=== PATIENT | female | born 1990 | race Caucasian/White ===

== ENCOUNTER 2016-12-11 14:01 | Outpatient (CLI) | payer OTHER ==
[~2016-12-11] VITALS: Ht 152.4 cm; Wt 95.1 kg
[2016-12-11 15:01] VITALS: BP 102/61; PULSE 97; RESP 18
[2016-12-11] MEDS ORDERED: TERBUTALINE 1 MG/ML INJ SC ONE (16:30)
[2016-12-11] MEDS ORDERED: LACTATED RINGER'S 1,000 ML IV ONE (16:30)
[2016-12-11] MEDS ORDERED: LACTATED RINGER'S 1,000 ML IV SCH (18:30)
--- NOTE | 2016-12-12 02:40 | TRIAGE ---
OB Triage Datetime Report Generated by CPN: 12/12/2016 02:39 Datetime: 12/11/2016 20:41 Stage of : OB Triage Datetime: 12/11/2016 20:39 Stage of : OB Triage Labor Evaluation Frequency: x2 Monitor Mode: External Duration (sec)2399: 40-60 Quality: Mild Resting Tone [place]: Relaxed Heart Rate FHR Baseline Rate: 130 Monitor Mode: External US Variability: Moderate 6-25 bpm Accelerations: 15X15 Decelerations: None Category: Category I Pain Presence: None/Denies Pain Type: N/A Datetime: 12/11/2016 19:15 Stage of : OB Triage Datetime: 12/11/2016 19:08 Stage of : OB Triage Datetime: 12/11/2016 18:30 Stage of : OB Triage Labor Evaluation Frequency: x5 Monitor Mode: External Duration (sec)2399: 70 Quality: Mild Pattern: Normal: <= 5 Contractions in 10 Minutes Resting Tone [place]: Relaxed Heart Rate FHR Baseline Rate: 130 Monitor Mode: External US FHR Baseline Changes: No Baseline Change Variability: Moderate 6-25 bpm Accelerations: 15X15 Decelerations: None Pain Assessment Pain Scale: 5 Pain Presence: Intermittent Pain Type: Cramping Pain Location: Abdomen; Back Pain Relief Measures: Comfort Measures Datetime: 12/11/2016 17:40 Temperature Route: Oral Datetime: 12/11/2016 17:30 Stage of : OB Triage Labor Evaluation Frequency: 2-5 Monitor Mode: External Duration (sec)2399: 70 Heart Rate FHR Baseline Rate: 130 Monitor Mode: External US FHR Baseline Changes: No Baseline Change Variability: Moderate 6-25 bpm Accelerations: 15X15 Decelerations: None Pain Assessment Pain Scale: 7 Pain Presence: Intermittent Pain Type: Cramping Pain Location: Abdomen; Back Pain Goal: 7 Pain Relief Measures: Comfort Measures Datetime: 12/11/2016 16:30 Stage of : OB Triage Labor Evaluation Frequency: 2-5 Monitor Mode: External Duration (sec)2399: 70 Heart Rate FHR Baseline Rate: 130 Monitor Mode: External US FHR Baseline Changes: No Baseline Change Variability: Moderate 6-25 bpm Accelerations: 15X15 Decelerations: None Pain Assessment Pain Scale: 7 Pain Presence: Intermittent Pain Type: Cramping Pain Location: Abdomen; Back Pain Goal: 7 Pain Relief Measures: Comfort Measures Datetime: 12/11/2016 16:13 Vaginal Exam Dilatation (cms): 0.0 Station: -3 Exam By: RN Vaginal Bleeding: None Cervix, Consistency: Soft Cervix, Position: Midposition Datetime: 12/11/2016 15:30 Labor Evaluation Frequency: 2-5 Monitor Mode: External Duration (sec)2399: 70 Heart Rate FHR Baseline Rate: 130 Monitor Mode: External US FHR Baseline Changes: No Baseline Change Variability: Moderate 6-25 bpm Accelerations: 15X15 Decelerations: None Pain Assessment Pain Scale: 7 Pain Presence: Intermittent Pain Type: Cramping Pain Location: Abdomen; Back Pain Goal: 7 Pain Relief Measures: Comfort Measures Datetime: 12/11/2016 14:43 Time of Arrival: 12/11/2016 13:57 EGA: 36.3 Arrived By: Ambulatory Arrived From: Home Chief Complaint: LOWER ABDOMEN AND LOWER BACK PAINS SINCE 899 TODAY Movement: Present Contractions: Irregular Time Contractions Began: 12/11/2016 09:00 Rupture of Membranes: Denies Vaginal Bleeding: None Vaginal Discharge: Denies Recent Sexual Intercouse: Denies Abdominal Trauma: Not Applicable Patient Complaints: Contractions Initial Plan: FM, Datetime: 12/11/2016 14:30 Stage of : OB Triage Maternal Assessment Level of Consciousness: Fully Conscious DTR's/Clonus: DTRs 2+ Headache: Denies Breath Sounds, Left: Clear and Equal Breath Sounds, Right: Clear and Equal Nausea/Vomiting: Denies RUQ Epigastric Pain: Denies Monitor Mode: External Monitor Mode: External US Pain Assessment Pain Scale: 7 Pain Presence: Intermittent Pain Type: Cramping Pain Location: Abdomen; Back Pain Goal: 7 Pain Relief Measures: Comfort Measures
--- NOTE | 2016-12-12 03:48 | PN ---
Triage Information Date/Time Reason for visit: Uterine contractions Weeks of Gestation 36 3/7 /Para Hypertention: none Additional information 26 Year-old with SIUP at 36 3/7 weeks with two previous C/S c/o UCS since 14:00. She has been receiving her care with Dr. Boyce. She states good movement. She denies nausea, vomiting, shortness of breath, chest pain, and abdominal pain between contractions, headache, visual changes, vaginal bleeding or LOF. Objective Vital Signs Date Time Temp Pulse Resp B/P Pulse Ox O2 Delivery O2 Flow Rate FiO2 12/11/16 15:01 98.2 97 18 102/61 99 Room Air Intake and Output 12/11/16 12/11/16 12/12/16 15:00 23:00 07:00 Intake Total 1125 ml Balance 1125 ml Exam General: Patient appears well, alert and oriented, NAD, appropriate mood and affect ABD: gravid, soft, non-tender. Back: No CVA tenderness (B/L) LE: No clubbing, cyanosis, edema, thigh or calf tenderness bilaterally FHT: 135 bpm , moderate variability with acceleration, no deceleration-category I Contractions: Q 10 min SVE: closed/ceph/intact membrane Assessment/Plan 26 Year-old with SIUP at 36 3/7 weeks with PTC. She received IVF and terbutaline x1. There was no further ucs. FHR: No sign of metabolic acidosis- Category I. Symptoms and sign of labor, preeclampsia, kick count discussed with patient, she voiced understanding. All of her questions answered. Patient was discharged home in stable condition with the appropriate discharge instructions provided. I would like patient to have close follow-up with her primary physician or outpatient clinic in 1-2 days or return to the ER for worsening symptoms or any other urgent concerns. WELLINGTON CORCORAN Dec 12, 2016 03:48
== END 2016-12-11 20:51 | disposition home or self-care (01) ==
LOC: OBT 14:01 → L-D 14:03 → OBT 20:51
PROVIDERS: ATTEND Obstetrics & Gynecology
DX: O26.893 Other specified pregnancy related conditions, third trimester (principal); Z3A.36 36 weeks gestation of pregnancy; R10.9 Unspecified abdominal pain
CPT/HCPCS: 36415; 96360; 96361; 96372; J3105; J7120; Z7500; G0463

== ENCOUNTER 2016-12-20 12:35 | Outpatient (CLI) | payer OTHER ==
[~2016-12-20] VITALS: Ht 152.4 cm; Wt 97.3 kg
[2016-12-20] MEDS ORDERED: FER325 PO (13:39)
[2016-12-20] MEDS ORDERED: PRENAT PO (13:39)
[2016-12-20 13:40] VITALS: BP 115/64; PULSE 100; RESP 18; Ht 152.4 cm; Wt 97.3 kg
--- NOTE | 2016-12-20 16:21 | RADRPT ---
PROCEDURE: US OB biophysical profile. CLINICAL INDICATION: decreased movements, contractions TECHNIQUE: Multiple sonographic images of the pelvis were obtained. The images were reviewed on a PACS workstation. COMPARISON: No prior studies are available for comparison. FINDINGS: There is a single viable intrauterine gestation. Cardiac activity is present with 154 beats per min [place]. There is a vertex presentation. The placenta is right lateral. There is no evidence of placental abruption. There is a normal amount of amniotic fluid with an WU = 11.4 cm. Biophysical profile: movement 2/2 tone 2/2. breathing 2/2 WU 2/2 Total 11/21 RPTAT: AA . IMPRESSION: Normal biophysical profile. . .Anthony Sung MD, Date Time Electronically viewed and signed by .Anthony Sung MD, MD on 12/20/2016 16:20 .S/
--- NOTE | 2016-12-20 16:48 | TRIAGE ---
OB Triage Datetime Report Generated by CPN: 12/20/2016 16:47 Datetime: 12/20/2016 16:30 Vaginal Exam Dilatation (cms): 0.0 Datetime: 12/20/2016 16:00 Stage of : OB Triage Maternal Assessment Level of Consciousness: Fully Conscious Labor Evaluation Frequency: 1UC/HR Monitor Mode: External Duration (sec)2399: 50 Quality: Mild Resting Tone [place]: Relaxed Heart Rate FHR Baseline Rate: 145 Monitor Mode: External US Variability: Moderate 6-25 bpm Accelerations: 15X15 Decelerations: None Pain Assessment Pain Scale: 6 Pain Presence: Constant Pain Type: Cramping Pain Location: Abdomen Pain Goal: 3 Membrane Status: Intact Vaginal Bleeding: None Datetime: 12/20/2016 15:00 Stage of : OB Triage Maternal Assessment Level of Consciousness: Fully Conscious Labor Evaluation Frequency: 3UC/HR Monitor Mode: External Duration (sec)2399: 70-80 Quality: Mild Resting Tone [place]: Relaxed Heart Rate FHR Baseline Rate: 150 Monitor Mode: External US Variability: Moderate 6-25 bpm Accelerations: 15X15 Decelerations: None Pain Assessment Pain Scale: 6 Pain Presence: Constant Pain Type: Cramping Pain Location: Abdomen Pain Goal: 3 Membrane Status: Intact Vaginal Bleeding: None Datetime: 12/20/2016 14:03 Monitor Mode: External Monitor Mode: External US Datetime: 12/20/2016 14:02 Vaginal Exam Dilatation (cms): 0.0 Datetime: 12/20/2016 14:00 Stage of : OB Triage Maternal Assessment Level of Consciousness: Fully Conscious Labor Evaluation Frequency: 0 Monitor Mode: External Resting Tone [place]: Relaxed Heart Rate FHR Baseline Rate: 150 Monitor Mode: External US Variability: Moderate 6-25 bpm Accelerations: 15X15 Decelerations: None Category: Category I Pain Assessment Pain Scale: 6 Pain Presence: Constant Pain Type: Cramping Pain Location: Abdomen Pain Goal: 3 Membrane Status: Intact Vaginal Bleeding: None Datetime: 12/20/2016 13:37 Assessment Type: Triage Maternal Assessment Level of Consciousness: Fully Conscious DTR's/Clonus: DTRs 2+; No Clonus Headache: Denies Blurred Vision: No Respiratory Effort: Unlabored; Regular Rhythm; Equal Expansion Breath Sounds, Left: Clear and Equal Breath Sounds, Right: Clear and Equal Nausea/Vomiting: Denies RUQ Epigastric Pain: Denies Lower Extremities Edema: None Degree: None Upper Extremities Edema: None Degree: None Facial Edema: None Fall Risk Assessment History of Falling: (0) No Secondary Diagnosis: (0) No Ambulatory Aid: (0) Bedrest/Nurse Assist IV Therapy: (0) No Gait: (0) Normal/Bedrest/Immobile Mental Status: (0) Oriented to Own Ability Fall Score: 0 Fall Risk Score Definition: No Risk: No action required Datetime: 12/20/2016 13:33 Time of Arrival: 12/20/2016 12:23 EGA: 37.5 Arrived By: Ambulatory Arrived From: Home Chief Complaint: PT HERE C/O UC'S SINCE 0300 Movement: Present Contractions: Irregular Rupture of Membranes: Denies Vaginal Bleeding: None Vaginal Discharge: Denies Recent Sexual Intercouse: Denies Abdominal Trauma: Not Applicable Patient Complaints: Contractions; Cramping; Back Pain Time Provider Notified: 12/20/2016 15:00 Provider Notified: ABUSLEME Initial Plan: EFM/BPP Datetime: 12/20/2016 13:14 Monitor Mode: External Monitor Mode: External US Datetime: 12/11/2016 14:43 EGA: 36.3
--- NOTE | 2016-12-20 16:51 | PN ---
Triage Information Date/Time Reason for visit: Uterine contractions Weeks of Gestation 37+ /Para 4/2 Diabetes: none Hypertention: none Objective Vital Signs Date Time Temp Pulse Resp B/P Pulse Ox O2 Delivery O2 Flow Rate FiO2 12/20/16 13:40 98.1 100 18 115/64 96 Room Air Contractions: None (RICHIE IRRITABILITY) Disposition: Discharge Assessment/Plan PER ,THE PATIENT IS DISCHARGED AND WILL BE FOLLOWD UP BY HER CLOSELY PAIENT EXTENSIVELY WERE ADVISED,IF ANY INCREASED CTX ANY LOF ANY VB AND DECREASED MOVEMENTS SHE WILL NEED TO GO TO HOSPITAL IMMEDIATELY SUSANA ALLEN M.D. Dec 20, 2016 16:51
== END 2016-12-20 16:50 | disposition home or self-care (01) ==
LOC: OBT 12:35 → L-D 12:36 → OBT 16:50
PROVIDERS: ATTEND Obstetrics & Gynecology
DX: O62.9 Abnormality of forces of labor, unspecified (principal); Z3A.37 37 weeks gestation of pregnancy
CPT/HCPCS: 76818; Z7500; G0463

== ENCOUNTER 2016-12-29 10:12 | Inpatient (IN) | payer OTHER ==
--- NOTE | 2016-12-25 11:41 | PREOPHP ---
DATE OF ADMISSION: 01/07/2017 The patient is coming on Sunday, the for a section. HISTORY OF PRESENT ILLNESS: This is a 25-year old female, 4, para 2, with 1 spontaneous . The patient with last period of 03/31/2016 and an EDC of 01/05/2017. This patient had care in my office without complications and she has been admitted for a repeat section. She was asked for possibilities of tubal ligation, and she will be using IUD. This patient has had no complications during her . Her normal weight before was 176. She had come in late in with a weight of 210 and she had been diagnosed with a large fetus as well. PAST MEDICAL HISTORY: She had 2 C sections. ALLERGIES: SHE IS NOT ALLERGIC TO ANY MEDICATIONS. SOCIAL HISTORY: She does not drink or smoke. No history of drugs. FAMILY HISTORY: Diabetes in her aunt and otherwise she has a healthy history. PHYSICAL EXAMINATION: She is 5 feet tall and she weighs 210. The pulse is 80, respirations 16, blood pressure is 110/80. HEENT: Head and neck is normal. CHEST: Clear. HEART: Normal sinus rhythm. LUNGS: Clear breath soft nontender no masses. ABDOMEN: Soft. Uterus at term, with normal presentation, cephalic and with normal heart tones. Pelvic examination with no changes. Cervix is closed, long and posterior. EXTREMITIES: Normal with some edema, normal reflexes, normal pulses. ASSESSMENT AND PLAN: With a diagnosis of term , previous sections x2, she is being admitted for a repeat section. She has been advised for the possible risks and possible complications of the procedure with her alternatives and options. Written information was provided. She had no more questions, and agreed to go ahead with the procedure with full understanding and no more questions. Dictated By: Velia Rodriguez MD /manjeet/raj /Document#: [id number]
[~2016-12-29] VITALS: Ht 152.4 cm; Wt 98.6 kg
[~2016-12-29 10:12] MED LIST: FER325 PO; PRENAT PO
[2016-12-29] MEDS ORDERED: LACTATED RINGER'S 1,000 ML IV SCH (10:22)
[2016-12-29] MEDS ORDERED: OXYTOCIN 30 UNITS/LR 500 ML IV SCH (10:30)
[2016-12-29] MEDS ORDERED: METHYLERGONOVINE 0.2 MG INJ IM PRN ×2 (10:30→15:00)
[2016-12-29] MEDS ORDERED: MISOPROSTOL 200 MCG TAB PR PRN ×2 (10:30→15:00)
[2016-12-29] MEDS ORDERED: CARBOPROST 250 MCG INJ IM PRN ×2 (10:30→15:00)
[2016-12-29] MEDS ORDERED: OXYTOCIN 30 UNITS/LR 500 ML IV PRN ×2 (10:30→15:00)
[2016-12-29] MEDS ORDERED: CEFAZOLIN 2 GM/50 ML (PMX) 50 ML IV SCH (10:30)
[2016-12-29 10:52] VITALS: Ht 152.4 cm; Wt 98.6 kg
[2016-12-29 11:42] LABS: BASOPHILS % 0.1 % (0.0-2.0); EOSINOPHILS % 0.5 % (0.0-7.0); HEMATOCRIT 32.6 % (37.0-47.0); HEMOGLOBIN 10.3 g/dl (12.0-16.0); LYMPHOCYTES # 1.6 10^3/ul (0.8-2.9); LYMPHOCYTES % 20.1 % (15.0-51.0); MEAN CORPUSCULAR HEMOGLOBIN 25.8 pg (29.0-33.0); MEAN CORPUSCULAR HGB CONC 31.6 g/dl (32.0-37.0); MEAN CORPUSCULAR VOLUME 81.5 fl (82.0-101.0); MEAN PLATELET VOLUME 10.4 fl (7.4-10.4); MONOCYTE # 0.5 10^3/ul (0.3-0.9); MONOCYTES % 6.2 % (0.0-11.0); NEUTROPHIL # 5.8 10^3/ul (1.6-7.5); NEUTROPHILS % 72.7 % (39.0-77.0); PLATELET COUNT 306 10^3/UL (140-415); RED CELL DISTRIBUTION WIDTH 13.7 % (11.5-14.5); WHITE BLOOD COUNT 7.9 10^3/ul (4.8-10.8)
[2016-12-29 12:06] LABS: INR 0.93; PROTIME 12.5 Sec (12.2-14.2)
[2016-12-29 12:07] LABS: PARTIAL THROMBOPLASTIN TIME 29.1 Sec (25.0-35.0)
[2016-12-29] MEDS ORDERED: OXYTOCIN 30 UNITS/LR 500 ML BAG IV ONE (13:00)
[2016-12-29] MEDS ORDERED: CEFAZOLIN 1 GM INJ ONE (13:00)
[2016-12-29] MEDS ORDERED: morphine SULFATE/PF (10 MG/10 ML) INJ ONE (13:11)
[2016-12-29] MEDS ORDERED: OXYTOCIN 10 UNIT INJ ONE ×2 (13:11)
[2016-12-29] MEDS ORDERED: PHENYLephrine (100 MCG/ML) 5ML SYG ONE (13:11)
[2016-12-29] MEDS ORDERED: ONDANSETRON 4 MG INJ ONE (13:11)
[2016-12-29] MEDS ORDERED: FENTAnyl 50 MCG/ML VIAL ONE (14:01)
[2016-12-29] MEDS: LACTATED RINGER'S 1,000 ML IV SCH ×2 (14:35→22:22)
--- NOTE | 2016-12-29 14:43 | OPR ---
Date/Time of Note Date/Time of Note DATE: 12/29/16 TIME: 14:41 Operative Report Free Text/Dictation REPEAT LOW SEGMENT TRANSVERSE C/S Procedure Date: Dec 29, 2016 Preoperative Diagnosis PREVIOUS C/S ( 2 ) TERM Postoperative Diagnosis SAME Surgeon see signature line Carpenter Mine: CHANG REYES MD medical assistant supervisor: RONY PHILIP MD Anesthesia Type: spinal Anesthesiologist: MIKAYLA BERUMEN MD Estimated Blood Loss: other Transfusion Required: no Specimens PLACENTA Complications: no Pt Condition Post Procedure: stable Disposition: PACU CHANG REYES MD Dec 29, 2016 14:43
[2016-12-29] MEDS ORDERED: ONDANSETRON 4 MG INJ IV PRN (15:00)
[2016-12-29] MEDS: CEFAZOLIN 2 GM/50 ML (PMX) 50 ML IV SCH ×2 (15:00→22:27)
[2016-12-29] MEDS ORDERED: KETOROLAC 30 MG INJ IV PRN (15:00)
[2016-12-29] MEDS ORDERED: LANOLIN 7 GM TUBE TOP PRN (15:00)
[2016-12-29] MEDS ORDERED: NA PHOSPHATE/BIPHOS 133 ML ENEMA PR PRN (15:00)
[2016-12-29] MEDS ORDERED: NALOXONE (0.4 MG/ML) INJ IV PRN (15:00)
[2016-12-29] MEDS ORDERED: morphine 2 MG INJ IV PRN (15:00)
[2016-12-29] MEDS ORDERED: METHYLERGONOVINE 0.2 MG TAB PO PRN (15:00)
[2016-12-29] MEDS ORDERED: DIPHENHYDRAMINE 50 MG INJ IV PRN (15:00)
[2016-12-29] MEDS ORDERED: HYDROCODONE/APAP (5/325) TAB PO PRN (15:00)
[2016-12-29] MEDS: OXYTOCIN 30 UNITS/LR 500 ML IV SCH ×2 (15:04→18:16)
[2016-12-29 16:45] VITALS: BP 132/77; PULSE 72; RESP 18
[2016-12-29 17:00] VITALS: BP 132/80; PULSE 69; RESP 19
[2016-12-29 17:30] VITALS: BP 136/74; PULSE 62; RESP 19
[2016-12-29 18:30] VITALS: BP 133/69; PULSE 73; RESP 19
--- NOTE | 2016-12-29 19:07 | OPR ---
DATE OF OPERATION: 12/29/2016 OPERATIVE PROCEDURE: Repeat low segment transverse section. PREOPERATIVE DIAGNOSIS: Term , previous section x2. POSTOPERATIVE DIAGNOSIS: Term , previous section x2. SURGEON: Velia Rodriguez MD RN WELLNESS: Dr. Wright ANESTHESIA: Michael Johnson MD COMPLICATIONS: None. OPERATIVE FINDINGS AT SURGERY: The patient was given spinal anesthesia, placed in the supine position. A Klein catheter was placed in the bladder and the abdomen was prepped and draped, and a transverse incision was made over the previous old scar 2 cm up the pubic bone of about 10 cm in length. The abdominal cavity was reached and the Giovanny retractor was placed inside. Visualization of the organs revealed that there was a small fibroid uterus. This segment area of the uterus was very thin and transparent, almost looking through. The area of the segment was almost out of the thinness and looking through you could see the amniotic fluid. The bladder flap was made. The incision was made higher on the uterus and the incision was increased laterally on either side for about 3 inches. The baby's head was delivered followed by the body. The cord was clamped and cut. The baby was handed over to the bilingual trainer team. The cord blood was obtained. The placenta was removed. The uterus was cleaned out. The cervix was opened with ring forceps and the uterus was closed with two layers using #1 Monocryl continuous suture imbedding the first line of sutures. The hemostasis was good and interrupted sutures were placed for reinforcement with 0-MH chromic, and also there was an adhesion of the uterus to the lateral wall of the pelvis that was also excised and released that was sutured also 0-chromic sutures. The tubes and ovaries were normal. The right ovary was larger than the left. The area was cleaned out and a piece of Interceed was placed on the incision for prevention of adhesions. The patient had refused tubal ligation in spite of the third C- section and in spite of medical advice. The abdominal area was closed by closing the peritoneum with a 2-0 Vicryl. The fascia was closed with a PDS loop suture. The subcutaneous tissue was closed with a 2-0 Vicryl suture, 3-0 Monocryl subcuticular to the skin, and Dermabond and Steri-Strips. Blood loss was approximately 700 cc. The urine was clear at the end of the procedure. The patient tolerated the procedure well and left the OR awake and stable. Sponge counts and instrument counts were correct. Intravenous antibiotics were given for prophylaxis. Dictated By: Velia Rodriguez MD /manjeet/dakota /Document#: [id number]
[2016-12-29 20:00] VITALS: BP 134/68; PULSE 67; RESP 18
[2016-12-29] MEDS: SENNA/DOCUSATE NA (8.6MG/50MG) TAB PO SCH (21:00)
[2016-12-29] MEDS: IBUPROFEN 800 MG TAB PO SCH (22:00)
[2016-12-30 04:00] VITALS: BP_SYST 114; BP_SYST 90; BP_DIAS 55; BP_DIAS 62; PULSE 69; PULSE 89; RESP 18
[2016-12-30] MEDS: IBUPROFEN 800 MG TAB PO SCH (06:00)
[2016-12-30] MEDS: CEFAZOLIN 2 GM/50 ML (PMX) 50 ML IV SCH (06:07)
[2016-12-30] MEDS: LACTATED RINGER'S 1,000 ML IV SCH (06:08)
[2016-12-30 08:30] VITALS: BP 110/67; PULSE 95; RESP 18
--- NOTE | 2016-12-30 09:20 | PN ---
Date/Time of Note Date/Time of Note DATE: 12/30/16 TIME: 09:18 Assessment/Plan Lines/Catheters IV Catheter Type (from Nrsg): Peripheral IV Subjective 24 Hr Interval Summary Day 1 post Patient is afebrile and feeling good Stable with normal near-normal laboratory testing Pain is controlled, incision is dry Encouraged ambulation Constitutional: no complaints Feeding: advancing diet Detailed Summary Eyes: no complaints ENT: no complaints Respiratory: no complaints Cardiovascular: no complaints Gastrointestinal: no complaints Genitourinary: no complaints Musculoskeletal: no complaints Skin: no complaints Neurologic: no complaints Endocrine: no complaints Lymphatic: no complaints Psychological: nl mood/affect, no complaints Immunologic: no complaints Exam/Review of Systems Vital Signs Vitals Vital Signs Date Time Temp Pulse Resp B/P Pulse Ox O2 Delivery O2 Flow Rate FiO2 12/30/16 04:00 98.1 89 18 114/62 Room Air 12/30/16 02:40 95 21 Intake and Output 12/29/16 12/29/16 12/30/16 15:00 23:00 07:00 Intake Total 500 ml Output Total 1000 ml 300 ml Balance -500 ml -300 ml Exam Constitutional: alert, oriented, well developed Psych: nl mood/affect, no complaints Head: atraumatic, normocephalic Eyes: EOMI, nl conjunctiva, nl lids, nl sclera ENMT: mucosa pink and moist, nl external ears & nose, nl lips & teeth, nl nasal mucosa & septum Neck: non-tender, supple Respiratory: clear to auscultation, normal air movement Cardiovascular: nl pulses, regular rate and rhythm Gastrointestinal: nl liver, spleen, non-tender, soft Musculoskeletal: nl extremities to inspection, nl gait and stance Extremities: normal pulses Neurological: SUPERVISOR MAIL CARRIERS II-XII intact, nl mental status, nl speech, nl strength Skin: nl turgor, rash or lesions Lymph: nl lymph nodes Results Result Diagram: 12/29/16 1030 CHANG REYES MD Dec 30, 2016 09:20
[2016-12-30 09:26] LABS: BASOPHILS % 0.2 % (0.0-2.0); EOSINOPHILS # 0.1 10^3/ul (0.0-0.5); EOSINOPHILS % 0.7 % (0.0-7.0); HEMATOCRIT 29.1 % (37.0-47.0); HEMOGLOBIN 9.2 g/dl (12.0-16.0); LYMPHOCYTES # 1.3 10^3/ul (0.8-2.9); LYMPHOCYTES % 12.4 % (15.0-51.0); MEAN CORPUSCULAR HEMOGLOBIN 25.6 pg (29.0-33.0); MEAN CORPUSCULAR HGB CONC 31.6 g/dl (32.0-37.0); MEAN CORPUSCULAR VOLUME 80.8 fl (82.0-101.0); MEAN PLATELET VOLUME 10.3 fl (7.4-10.4); MONOCYTE # 0.7 10^3/ul (0.3-0.9); MONOCYTES % 6.8 % (0.0-11.0); NEUTROPHIL # 8.5 10^3/ul (1.6-7.5); NEUTROPHILS % 79.3 % (39.0-77.0); PLATELET COUNT 284 10^3/UL (140-415); RED CELL DISTRIBUTION WIDTH 13.8 % (11.5-14.5); WHITE BLOOD COUNT 10.8 10^3/ul (4.8-10.8)
[2016-12-30] MEDS: SENNA/DOCUSATE NA (8.6MG/50MG) TAB PO SCH ×2 (09:51→22:13)
[2016-12-30] MEDS: KETOROLAC 30 MG INJ IV SCH ×3 (09:52→22:09)
[2016-12-30 12:00] VITALS: BP 105/60; PULSE 85; RESP 20
[2016-12-30 16:00] VITALS: BP 103/51; PULSE 80; RESP 16
[2016-12-30 20:00] VITALS: BP 114/63; PULSE 94; RESP 17
[2016-12-31 04:40] VITALS: BP 124/73; PULSE 83; RESP 17
[2016-12-31] MEDS: KETOROLAC 30 MG INJ IV SCH ×4 (04:41→21:30)
[2016-12-31 07:50] VITALS: BP 125/70; PULSE 78; RESP 20
[2016-12-31] MEDS: SENNA/DOCUSATE NA (8.6MG/50MG) TAB PO SCH ×2 (09:02→21:06)
--- NOTE | 2016-12-31 13:45 | PN ---
Date/Time of Note Date/Time of Note DATE: 12/31/16 TIME: 13:44 Assessment/Plan Lines/Catheters IV Catheter Type (from Nrsg): Peripheral IV Subjective 24 Hr Interval Summary day 2 after repeat c/s afebrile , feels good. uterus contracted , tolerating diet now and passing gases incision dry Constitutional: BM, ambulates, flatus, improved, no complaints, urine output Feeding: advancing diet Pain Control: moderate Detailed Summary Eyes: no complaints ENT: no complaints Respiratory: no complaints Cardiovascular: no complaints Gastrointestinal: no complaints Genitourinary: no complaints Musculoskeletal: no complaints Skin: no complaints Neurologic: no complaints Endocrine: no complaints Lymphatic: no complaints Psychological: nl mood/affect, no complaints Immunologic: no complaints Exam/Review of Systems Vital Signs Vitals Vital Signs Date Time Temp Pulse Resp B/P Pulse Ox O2 Delivery O2 Flow Rate FiO2 12/31/16 07:50 98.1 78 20 125/70 Room Air 12/30/16 11:10 95 21 Intake and Output 12/30/16 12/30/16 12/31/16 14:59 22:59 06:59 Output Total 300 ml 300 ml Balance -300 ml -300 ml Exam Constitutional: alert, oriented, well developed Psych: nl mood/affect, no complaints Head: atraumatic, normocephalic Eyes: EOMI, nl conjunctiva, nl lids, nl sclera ENMT: mucosa pink and moist, nl external ears & nose, nl lips & teeth, nl nasal mucosa & septum Neck: non-tender, supple Respiratory: clear to auscultation, normal air movement Cardiovascular: nl pulses, regular rate and rhythm Gastrointestinal: nl liver, spleen, non-tender, soft Musculoskeletal: nl extremities to inspection, nl gait and stance Extremities: normal pulses Neurological: UTILIZATION MANAGEMENT RN II-XII intact, nl mental status, nl speech, nl strength Skin: nl turgor, rash or lesions Lymph: nl lymph nodes Results Result Diagram: 12/30/16 0852 CHANG REYES MD Dec 31, 2016 13:45
[2016-12-31] MEDS: SILVER SULFADIAZINE 1% 25 GM CR TOP SCH (16:40)
[2016-12-31 18:26] VITALS: BP 132/78; PULSE 69; RESP 20
[2016-12-31 20:00] VITALS: BP 122/74; PULSE 72; RESP 19
[2017-01-01] MEDS: HYDROCODONE/APAP (5/325) TAB PO PRN ×2 (00:45→11:45)
[2017-01-01] MEDS: KETOROLAC 30 MG INJ IV SCH ×2 (03:30→09:30)
[2017-01-01 04:00] VITALS: BP 123/75; PULSE 72; RESP 19
[2017-01-01] MEDS: SILVER SULFADIAZINE 1% 25 GM CR TOP SCH ×2 (04:54→15:36)
[2017-01-01 08:15] VITALS: BP 138/79; PULSE 77; RESP 19
[2017-01-01] MEDS ORDERED: MEASLES,MUMPS,RUBELLA VACCINE INJ SC* ONE (09:00)
[2017-01-01] MEDS ORDERED: DIPHTH/TET/ACEL PERTUSS (ADULT) 0.5 ML VIAL IM* ONE (09:00)
[2017-01-01] MEDS: SENNA/DOCUSATE NA (8.6MG/50MG) TAB PO SCH (09:15)
--- NOTE | 2017-01-01 14:03 | PD.PPDC ---
CONTACT OFFICER Discharge Instruction Condition Patient Condition: Good Diet Diet: Resume Regular Diet Activity/Restrictions Activity: Normal Activity May Shower Restrictions: No Exercising No Lifting No Driving No Sexual Activity Nothing in the Vagina No [place] No Tampons, douche Wound/Drain Care Instructions Wound/Drain Care Instructions: Remove Steri Strips in 1 week Follow-up Follow-up with Physician: 2, Week/Weeks Return to clinic for BOAT OUTFITTING SUPERVISOR Instructions: Fever greater than 101 Chills Worsening abdominal pain Excessive Vaginal Bleeding More than 2 pads per hour Unable to tolerate diet OB Instructions: Breast Tenderness Depression Blurried Vision Headache Surgical Instructions: Incisional Drainage Incisional Redness CHANG REYES MD Jan 01, 2017 14:03
--- NOTE | 2017-01-01 14:16 | DS ---
Date/Time of Note Date/Time of Note DATE: 01/01/17 TIME: 14:08 Discharge Summary Admission/Discharge Info Admit Date/Time Dec 29, 2016 at 10:12 Discharge Date/Time 01/01/2017 Discharge Diagnosis term previous c/s repeat c/s Patient Condition: Good Procedures Repeat c/s Hx of Present Illness term with previous c/s and an uneventful had GDM diet controlled was admitted for repeat c/s patient had a blister that opened due to incisional tape Hospital Course patient had no problems voiding after c/s with bm after second day. her labs were near normal pain was controlled with po meds. incision was clean and healing well Home Meds Reported Medications Ferrous Sulfate* (Ferrous Sulfate*) 325 Mg Tabec, 325 MG PO DAILY, TAB 12/20/16 Multivit/Min/Fol Ac/Iron/Pren* ( S*) 1 Tab Tab, 1 TAB PO DAILY, TAB 12/20/16 Follow-up Plan 1 week in my office or earlier if any problem, Primary Care Provider Laura Sanchez Time spent on discharge: < 30 minutes CHANG REYES MD Jan 01, 2017 14:16
== END 2017-01-01 15:50 | disposition home or self-care (01) | DRG 766 ==
LOC: L-D 10:12 → PP1 16:42
PROVIDERS: ADMIT Obstetrics & Gynecology; ATTEND Obstetrics & Gynecology
PROC: 10D00Z1 Extraction of Products of Conception, Low, Open Approach (ICD-10-PCS; principal; 2016-12-29 12:30)
DX: O34.211 Maternal care for low transverse scar from previous cesarean delivery (principal); Z37.0 Single live birth; Z3A.00 Weeks of gestation of pregnancy not specified
CPT/HCPCS: 85025; 85610; 85730; 86592; 86850; 86900; 86901; 87340; 90715; 94760; 99464; J0690; J1200; J1885; J2274; J2370; J2405; J2590; J3010; J7120

== ENCOUNTER 2018-07-18 22:34 | Outpatient (CLI) | payer OTHER ==
[~2018-07-18] VITALS: Ht 152.4 cm; Wt 94.6 kg
[~2018-07-18 22:34] MED LIST changes: -FER325 PO
[2018-07-18 22:38] VITALS: BP 123/59; PULSE 90; RESP 18; Ht 152.4 cm; Wt 94.6 kg
[2018-07-18] MEDS ORDERED: ACETAMINOPHEN 500 MG TAB PO STA (23:52)
[2018-07-19] MEDS ORDERED: MICO44CM VAGINAL (00:02)
[2018-07-19] MEDS ORDERED: FER325 PO (00:02)
[2018-07-19] MEDS ORDERED: CITRACAL PO (00:02)
--- NOTE | 2018-07-19 00:59 | PN ---
Triage Information Date/Time 07/19/1809/01/49 Reason for visit: vaginal and groin pain for 3days Weeks of Gestation 20w4d /Para x3 c/s Diabetes: none Hypertention: none Additional information yeast infection for 3days using monistat Objective Heart Rate: 140's Exam VE no discharge on gloves pain got better with tylenol and resting pain got aggreviated with moving and bending,carring child 2yrs old 35lb Results/Medications Results 24 hrs Laboratory Tests Test 07/18/18 22:20 Urine Color STRAW Urine Clarity CLEAR Urine pH 7.0 Urine Specific [place] 1.008 Urine Ketones NEGATIVE Urine Nitrite NEGATIVE Urine Bilirubin NEGATIVE Urine Urobilinogen NEGATIVE Urine Leukocyte Esterase NEGATIVE Urine Microscopic RBC 1 Urine Microscopic WBC 2 Urine Hemoglobin 2+ H Urine Glucose NEGATIVE Urine Total Protein NEGATIVE Medications tylenol 1000mg po Imaging Results CVL 5.36 Disposition: Discharge Assessment/Plan A IUP 20w4d groin and vaginal pain P discharge home with instructions not to lift of carry heavy object and resy RTH prn RONY PHILIP MD Jul 19, 2018 00:59
--- NOTE | 2018-07-19 01:52 | TRIAGE ---
OB Triage Datetime Report Generated by CPN: 07/19/2018 01:52 Datetime: 07/19/2018 00:44 Labor Evaluation Frequency: none Monitor Mode: External Resting Tone [place]: Relaxed Heart Rate FHR Baseline Rate: 145 Monitor Mode: External US Variability: Moderate 6-25 bpm Accelerations: 15X15 Decelerations: None Category: Category I Comments: Monitors off Datetime: 07/19/2018 00:33 Pain Assessment Pain Scale: 5 Pain Presence: Constant Pain Type: Burning; Ache Pain Location: Other Pain Relief Measures: Comfort Measures Pain Assessment Comments: VAGINAL PAIN Datetime: 07/19/2018 00:14 Monitor Mode: External US Comments: MONITOR WAS TRACING MATERNAL HR D/T PT UPRIGHT POSITIONING Datetime: 07/19/2018 00:00 Labor Evaluation Frequency: None Monitor Mode: External Duration (sec)2399: 0 Resting Tone [place]: Relaxed Heart Rate FHR Baseline Rate: 145 Variability: Moderate 6-25 bpm Accelerations: 15X15 Decelerations: None Category: Category I Comments: lots of loss of contact d/t maternal movement, BMI and GA Datetime: 07/18/2018 23:00 Labor Evaluation Frequency: none Monitor Mode: External Duration (sec)2399: 0 Resting Tone [place]: Relaxed Contraction Comments: some uterine irritability noted Heart Rate FHR Baseline Rate: 145 Variability: Moderate 6-25 bpm Accelerations: 15X15 Decelerations: None Category: Category I Datetime: 07/18/2018 22:58 Vaginal Exam Membrane Status: Intact Datetime: 07/18/2018 22:45 Time of Arrival: 07/18/2018 22:19 EGA: 20.4 Arrived By: Wheelchair Arrived From: Home Chief Complaint: Yeast infection x3days (taking monistt, today with more vaginal pain and groin are a pain Movement: Present Contractions: Denies/Absent Rupture of Membranes: Denies Vaginal Bleeding: None Vaginal Discharge: Present Recent Sexual Intercouse: Denies Abdominal Trauma: Not Applicable Patient Complaints: Other Time Provider Notified: 07/18/2018 22:36 Provider Notified: Initial Plan: EFM, VS, CL, UA, URINE CULTURE Datetime: 07/18/2018 22:39 Temperature Route: Oral Pain Assessment Pain Scale: 9 Pain Presence: Intermittent Pain Type: Burning; Ache Pain Location: Other Pain Relief Measures: Comfort Measures Pain Assessment Comments: VAGINAL PAIN Datetime: 07/18/2018 22:38 Maternal Assessment Level of Consciousness: Fully Conscious DTR's/Clonus: DTRs 2+; No Clonus Headache: Denies Blurred Vision: No Respiratory Effort: Unlabored; Regular Rhythm; Equal Expansion Breath Sounds, Left: Clear and Equal Breath Sounds, Right: Clear and Equal Nausea/Vomiting: Denies RUQ Epigastric Pain: Denies Lower Extremities Edema: None Degree: None Upper Extremities Edema: None Degree: None Facial Edema: None Fall Risk Assessment History of Falling: (0) No Secondary Diagnosis: (0) No Ambulatory Aid: (0) Bedrest/Nurse Assist IV Therapy: (0) No Gait: (0) Normal/Bedrest/Immobile Mental Status: (0) Oriented to Own Ability Fall Score: 0 Fall Risk Score Definition: No Risk: No action required Datetime: 07/18/2018 22:35 Stage of : OB Triage Monitor Mode: External Monitor Mode: External US Comments: MONITORS APPLIED, FHT AUDIBLE AROUND 150BPM
== END 2018-07-19 00:55 | disposition home or self-care (01) ==
LOC: L-D 22:34 → OBT 22:34
PROVIDERS: ATTEND Obstetrics & Gynecology
DX: O26.892 Other specified pregnancy related conditions, second trimester (principal); R10.2 Pelvic and perineal pain; Z3A.20 20 weeks gestation of pregnancy
CPT/HCPCS: 76817; 81001; 87086; Z7500; Z7610; G0463

== ENCOUNTER 2018-11-09 23:14 | Inpatient (IN) | payer OTHER ==
[~2018-11-09] VITALS: Ht 152.4 cm; Wt 96.8 kg
[~2018-11-09 23:14] MED LIST changes: +CITRACAL PO; +FER325 PO; +MICO44CM VAGINAL
[2018-11-09 23:28] VITALS: Ht 152.4 cm; Wt 96.8 kg
[2018-11-09 23:29] VITALS: BP 102/57; PULSE 96; RESP 16
[2018-11-10] MEDS ORDERED: BUTORPHANOL 2 MG INJ IM ONE (00:30)
[2018-11-10] MEDS ORDERED: AL HYDROX/MG HYDROX/SIMETH 30 ML CUP PO ONE (04:00)
[2018-11-10] MEDS ORDERED: BUTORPHANOL 2 MG INJ IV ONE (09:30)
[2018-11-10] MEDS: LACTATED RINGER'S 1,000 ML IV SCH ×3 (09:38→19:29)
--- NOTE | 2018-11-10 10:00 | TRIAGE ---
OB Triage Datetime Report Generated by CPN: 11/10/2018 10:00 Datetime: 11/10/2018 07:56 Maternal Assessment Level of Consciousness: Keenly Alert, Responsive DTR's/Clonus: DTRs 2+ Headache: Denies Blurred Vision: No Nausea/Vomiting: Denies RUQ Epigastric Pain: Denies Facial Edema: None Heart Rate FHR Baseline Rate: 150 Monitor Mode: External US FHR Baseline Changes: No Baseline Change Variability: Moderate 6-25 bpm Accelerations: 15X15 Decelerations: None Category: Category I Pain Assessment Pain Scale: 7 Pain Presence: Intermittent Pain Goal: 2 Vaginal Exam Dilatation (cms): 0.0 Effacement (%): 0 Exam By: jj rn Membrane Status: Intact Vaginal Bleeding: None Cervix, Consistency: Moderate Cervix, Position: Anterior Datetime: 11/10/2018 07:00 Labor Evaluation Frequency: X1 IN ONE HOUR Monitor Mode: External Duration (sec)2399: 60 Quality: Mild Resting Tone [place]: Relaxed Heart Rate FHR Baseline Rate: 145 Monitor Mode: External US Variability: Moderate 6-25 bpm Accelerations: 15X15 Decelerations: None Datetime: 11/10/2018 06:35 Pain Assessment Pain Scale: 6 Pain Goal: 3 Datetime: 11/10/2018 06:00 Labor Evaluation Frequency: X1 IN ONE HOUR Monitor Mode: External Duration (sec)2399: 60 Quality: Mild Resting Tone [place]: Relaxed Heart Rate FHR Baseline Rate: 135 Monitor Mode: External US Variability: Moderate 6-25 bpm Accelerations: 15X15 Decelerations: None Category: Category I Datetime: 11/10/2018 05:40 Temperature Route: Oral Datetime: 11/10/2018 05:00 Labor Evaluation Frequency: X1 IN ONE HOUR Monitor Mode: External Duration (sec)2399: 70 Resting Tone [place]: Relaxed Heart Rate FHR Baseline Rate: 140 Monitor Mode: External US Variability: Moderate 6-25 bpm Accelerations: 15X15 Decelerations: None Category: Category I Comments: SOME LOSS OF CONTACT PT ON SIDE Datetime: 11/10/2018 04:48 Pain Assessment Pain Scale: 7 Pain Goal: 3 Pain Assessment Comments: PT STATES PAIN IS A "LITTLE BETTER" AFTER RECEIVING [place] Datetime: 11/10/2018 04:00 Labor Evaluation Frequency: X2 IN ONE HOUR Monitor Mode: External Duration (sec)2399: 60-100 Quality: Mild Resting Tone [place]: Relaxed Heart Rate FHR Baseline Rate: 135 Monitor Mode: External US Variability: Moderate 6-25 bpm Accelerations: 15X15 Decelerations: None Category: Category I Datetime: 11/10/2018 03:00 Labor Evaluation Frequency: X3 IN ONE HOUR Monitor Mode: External Duration (sec)2399: 60-120 Quality: Mild Resting Tone [place]: Relaxed Heart Rate FHR Baseline Rate: 140 Monitor Mode: External US Variability: Moderate 6-25 bpm Accelerations: 15X15 Decelerations: None Category: Category I Datetime: 11/10/2018 02:55 Temperature Route: Oral Datetime: 11/10/2018 02:00 Labor Evaluation Frequency: X3 IN ONE HOUR Monitor Mode: External Duration (sec)2399: 70-100 Quality: Mild Resting Tone [place]: Relaxed Heart Rate FHR Baseline Rate: 145 Monitor Mode: External US Variability: Moderate 6-25 bpm Accelerations: 15X15 Decelerations: None Category: Category I Pain Assessment Comments: PT ASLEEP Datetime: 11/10/2018 01:17 Pain Assessment Comments: PT COMPLAINT OF UPPER ABDOMINAL PAIN Datetime: 11/10/2018 01:00 Labor Evaluation Frequency: X1 IN ONE HOUR Monitor Mode: External Duration (sec)2399: 70 Quality: Mild Resting Tone [place]: Relaxed Heart Rate FHR Baseline Rate: 145 Monitor Mode: External US Variability: Moderate 6-25 bpm Accelerations: 15X15 Decelerations: None Category: Category I Pain Assessment Pain Scale: 9 Pain Presence: Constant Pain Type: Sharp Pain Location: Abdomen Pain Goal: 3 Datetime: 11/09/2018 23:52 Vaginal Exam Dilatation (cms): 0.0 Effacement (%): 0 Station: -3 Exam By: EM Datetime: 11/09/2018 23:24 Stage of : OB Triage Assessment Type: Triage Maternal Assessment Level of Consciousness: Keenly Alert, Responsive DTR's/Clonus: DTRs 2+; No Clonus Headache: Denies Blurred Vision: No Respiratory Effort: Unlabored; Regular Rhythm; Equal Expansion Breath Sounds, Left: Clear and Equal Breath Sounds, Right: Clear and Equal Nausea/Vomiting: Denies RUQ Epigastric Pain: Denies Lower Extremities Edema: None Degree: None Upper Extremities Edema: None Degree: None Facial Edema: None Temperature Route: Oral Fall Risk Assessment History of Falling: (0) No Secondary Diagnosis: (0) No Ambulatory Aid: (0) Bedrest/Nurse Assist IV Therapy: (0) No Gait: (0) Normal/Bedrest/Immobile Mental Status: (0) Oriented to Own Ability Fall Score: 0 Fall Risk Score Definition: No Risk: No action required Pain Assessment Pain Scale: 9 Pain Presence: Intermittent Pain Type: Contraction Pain Location: Abdomen Pain Goal: 3 Datetime: 11/09/2018 23:22 Contraction Comments: TOCO APPLIED Comments: US APPLIED Datetime: 11/09/2018 23:17 Time of Arrival: 11/09/2018 23:06 EGA: 36.6 Arrived By: Wheelchair Arrived From: Emergency Dept Chief Complaint: PT PRESENTS TO TRIAGE WITH C/O OF UC'S SINCE 1699 Movement: Present Time Contractions Began: 11/09/2018 17:00 Rupture of Membranes: Denies Vaginal Bleeding: None Vaginal Discharge: Denies Recent Sexual Intercouse: Denies Abdominal Trauma: Not Applicable Patient Complaints: Contractions Time Provider Notified: 11/09/2018 23:52 Provider Notified: ABUSLEME Initial Plan: EFM Datetime: 07/18/2018 22:45 EGA: 20.4 Datetime: 07/18/2018 22:38 Fall Score: 0 Fall Risk Score Definition: No Risk: No action required
[2018-11-10] MEDS: AL HYDROX/MG HYDROX/SIMETH 30 ML CUP PO PRN ×2 (12:57→19:28)
[2018-11-10] MEDS: DOCUSATE SODIUM 100 MG CAP PO SCH ×2 (12:58→21:12)
[2018-11-10] MEDS: PRENATAL VITAMIN PO SCH (12:58)
--- NOTE | 2018-11-10 16:53 | PREOPHP ---
DATE OF ADMISSION: 11/10/2018 HISTORY OF PRESENT ILLNESS: This is a 28-year-old female, 4, para 3, with 3 previous C-sections. EDC of 12/01/2017. This patient is at 37 weeks' gestation and she has come in for headaches, epigastric pain, and possible uterine contractions. The patient was complaining of epigastric pain more than contractions and it radiated to both sides to her back. The patient was admitted for evaluation for possible PIH and she is being ordered a 24-hour urine collection due to the fact that she has upper epigastric pain with contractions that are not noticeable in the monitoring. The patient's pelvic examination is with a closed, long cervix and cephalic presentation high in the pelvis. Membranes intact. She had been given p.o. medication and hydration with no resolve, and she continued saying that she was having a continuous epigastric pain for which an abdominal ultrasound was ordered along with PIH panel, along with 24-hour urine collection for protein in the urine, and medication with Stadol was given to control her pain and to see how she evolves tomorrow with her results. The blood pressure has been in the normal side and with no signs for PIH at this time, but atypical epigastric pain and headaches and back pain with contractions she states that are not being monitored. We will need to observe and see what is happening with her. The patient will be evaluated and a decision will be made tomorrow about what steps to follow. Family History : non contributory. ALLERGIY : NONE. NO HISTORY OF MEDICAL OR SURGICAL ANTECEDENTS. NO HISTORY DRUGS, SMOKING OR DRINKING.. REVIEW OF SYSTEMS : NON CONTRIBUTORY. Patient is on vitamins only PHYSICAL EXAMINATION: VITAL SIGNS: The blood pressure is 110/60, pulse is 80, respirations 16. She is afebrile. OBESITY HEAD AND NECK: Normal. CHEST: Clear. HEART: Normal sinus rhythm. LUNGS: Clear. ABDOMEN: Soft. Uterus at term. PELVIC: Closed, long cervix, POSTERIOR , Cephalic. Membranes intact. NO DILATATION OR EFFACEMENT. PRESENTATION HIGH IN PELVIS EXTREMITIES: With some leg edema. The patient is obese with a 41.7 BMI and it is difficult to evaluate with the monitoring. Otherwise, the reflexes are normal. DIAGNOSES: 1. 37 weeks gestational age. 2. Three previous sections. 3. Abdominal pain, epigastric pain. 4. R/O PIH, GALLBLADDER DISEASE PLAN: She is being observed for labor and/or PIH/ Gallbladder disease Dictated By: CHANG HUTTON/STEVE Conf#: [id number] DID#: [id number] MTDD
[2018-11-11] MEDS: LACTATED RINGER'S 1,000 ML IV SCH ×2 (03:13→10:41)
[2018-11-11] MEDS: PRENATAL VITAMIN PO SCH (08:44)
[2018-11-11] MEDS: DOCUSATE SODIUM 100 MG CAP PO SCH (08:44)
--- NOTE | 2018-11-11 09:17 | PN ---
Triage Information Date/Time late entry note for 11/10/2018 Nov 10, 2018 at 08:40 Reason for visit: Uterine contractions Weeks of Gestation at 37 wks ga GUS 12/01/18 presents with occasional contractions and epigastric pain She reports positive movement, denies vaginal bleeding or leaking fluid /Para Diabetes: none Hypertention: none Objective Vital Signs Date Temp Pulse Resp B/P (MAP) Pulse Ox O2 O2 Flow FiO2 Time Delivery Rate 11/09/18 98.3 96 16 102/57 Room Air 23:29 (72) Intake and Output 11/10/18 11/10/18 11/11/18 1515:00 23:00 07:00 IntakeIntake Total 1000 ml 1275 ml 975 ml BalanceBalance 1000 ml 1275 ml 975 ml Heart Rate: 140's Heart Rate Comments FHR tracing cat 1 Contractions: >10 Minutes Apart Results/Medications Result Diagram: 11/11/18 0613 11/11/18 0613 Results 24 hrs Laboratory Tests Test 11/10/18 11:11 11/11/18 06:13 White Blood Count 6.8 6.7 Red Blood Count 3.33 L 3.26 L Hemoglobin 9.4 L 9.3 L Hematocrit 28.6 L 27.9 L Mean Corpuscular Volume 85.9 85.6 Mean Corpuscular Hemoglobin 28.2 L 28.5 L Mean Corpuscular Hemoglobin Concent 32.9 33.3 Red Cell Distribution Width 13.7 13.5 Platelet Count 249 238 Mean Platelet Volume 9.9 9.7 Immature Granulocytes % 0.400 0.600 H Neutrophils % 69.2 68.1 Lymphocytes % 22.7 23.0 Monocytes % 6.7 7.1 Eosinophils % 0.9 0.9 Basophils % 0.1 0.3 Nucleated Red Blood Cells % 0.0 0.0 Immature Granulocytes # 0.030 0.040 H Neutrophils # 4.7 4.6 Lymphocytes # 1.5 1.6 Monocytes # 0.5 0.5 Eosinophils # 0.1 0.1 Basophils # 0.0 0.0 Nucleated Red Blood Cells # 0.0 0.0 Prothrombin Time 12.6 Prothrombin Time Ratio 1.0 INR International Normalized Ratio 0.93 Activated Partial Thromboplast Time 31.6 Fibrinogen 417.0 Sodium Level 139 137 Potassium Level 3.9 3.8 Chloride Level 112 H 109 Carbon Dioxide Level 23 23 Anion Gap 4 L 5 Blood Urea Nitrogen 8 6 L Creatinine 0.34 L 0.35 L Est Glomerular Filtrat Rate mL/min > 60 > 60 Glucose Level 89 106 Uric Acid 3.9 Calcium Level 8.3 L 8.6 Total Bilirubin 0.4 0.3 Direct Bilirubin 0.00 0.00 Indirect Bilirubin 0.4 0.3 Aspartate Amino Transf (AST/SGOT) 20 18 Alanine Aminotransferase (ALT/SGPT) 21 26 Alkaline Phosphatase 120 106 Total Protein 5.9 L 5.8 L Albumin 2.9 L 2.8 L Globulin 3.00 3.00 Albumin/Globulin Ratio 0.96 0.93 Serum Fasting Glucose Urine Urine Fasting Glucose Medications Current Medications Lactated Ringer's 1,000 ml @ 125 mls/hr Q8H IV Last administered on 11/11/18 03:13; Admin Dose 125 MLS/HR; Start 11/10/18 at 08:55 Prenat Multivit/ [place]ane/Iron/Folic Ac () 1 tab DAILY PO Last administered on 11/11/18 08:44; Admin Dose 1 TAB; Start 11/10/18 at 09:00 Docusate Sodium (Colace) 100 mg BID PO Last administered on 11/11/18 08:44; Admin Dose 100 MG; Start 11/10/18 at 09:00 Al Hydrox/Mg Hydrox/Simethicone (Mag-Al Plus) 30 ml Q6H PRN PO .GI UPSET Last administered on 11/10/18 19:28; Admin Dose 30 ML; Start 11/10/18 at 09:00 Simethicone (Mylicon) 80 mg Q6H PRN PO DISTENSION/GAS/BLOATING Last administered on 11/10/18 21:34; Admin Dose 80 MG; Start 11/10/18 at 21:00 Imaging Results PROCEDURE: ULTRASOUND BIOPHYSICAL PROFILE CLINICAL INDICATION: 28-year-old female in labor for viability. TECHNIQUE: Multiple sonographic images were obtained in order to perform a biophysical profile The images were reviewed on a PACS workstation. COMPARISON: Ultrasound OB limited. FINDINGS: There is a single viable intrauterine gestation. There is a vertex presentation. Cardiac activity is present at 154 beats per minute. The placenta is posterior grade II. The results of the biophysical profile are as follows: breathing movement = 2/2 Gross body movement = 2/2 tone = 2/2 Qualitative amniotic fluid volume = 2/2 Amniotic fluid index equals 10.5 cm. The maximal vertical pocket is 3.6 cm. This yields a biophysical profile score of 8/8. IMPRESSION: Biophysical profile score is 8/8. .Sarwat Alex MD, MD Date Time Electronically viewed and signed by .Sarwat Alex MD, MD on 11/10/2018 01:16 .M/ CC: CHANG REYES MD [id number] PROCEDURE: US right upper quadrant abdomen. CLINICAL INDICATION: Abdominal pain TECHNIQUE: Multiple real-time images were acquired of the patient's right upper quadrant abdomen utilizing a high resolution transducer. COMPARISON: None FINDINGS: The liver demonstrates increased echogenicity and normal size without focal lesions. Patent portal vein. Normal gallbladder without gallstones, pericholecystic fluid or gallbladder wall thickening. Negative sonographic Mckinley's sign. No intrahepatic or extrahepatic biliary dilatation. The common bile duct measures 4 mm in maximal dimension. Pancreas is obscured by bowel gas. The right kidney is normal size with normal echogenicity and morphology. The right kidney measures 11.6 cm. No hydronephrosis or perinephric fluid collections. There are no areas of increased echogenicity to suggest nephrolithiasis. Normal caliber aorta and IVC. No peritoneal free fluid. IMPRESSION: Echogenic liver representing fatty infiltration or hepatocellular disease. Normal appearance of the gallbladder. RPTAT:AAJJ Physician Laly Date Time Electronically viewed and signed by Physician Laly on 11/10/2018 10:23 MH/ CC: CHANG REYES MD [id number] Assessment/Plan Continuos observation NAEEM MICHAEL MD Nov 11, 2018 09:17
[2018-11-11] MEDS ORDERED: SOD FERRIC GLUC COMPLX 125 MG in SOD CHLORIDE 0.9% 100 ML IVPB ONE ×4 (12:30)
--- NOTE | 2018-11-11 15:03 | DS ---
Date/Time of Note Date/Time of Note DATE: 11/11/18 TIME: 14:56 Obstetrical Discharge Record Final Diagnosis Final Diagnosis: Term not delivered Other Final Diagnosis 38 years old female who had been admitted on 10 November due to epigastric pain uterine contractions and headaches, prior history of 3 sections and poor compliance with her care. This patient had been evaluated for PIH and diabetes. Her blood pressures have been normal her headaches subsided with bedrest and IV fluids and her abdominal pain also subsided. An ultrasound obtained revealed fatty liver no evidence of cholecystitis or gallbladder disease. The urine protein showed proteinuria still mild for which we will send her home and possibly do a repeat at 38 weeks. 3-hour GTT was normal. Patient is stable to go home right now with no headaches no epigastric pain no uterine contractions and normal blood pressures normal reflexes not headaches dizziness or epigastric pain anymore. Her leg edema resolved with the rest. She is advised what to do and not to do at home and to come back if she has any problems of headaches dizziness epigastric pain blurred vision swelling or pain of any sort Condition on Discharge Physical Assessment Voiding: Yes Bowel Movement: Yes Breast: Soft, non-tender Fundus: Other Abdomen and Incision: No abdominal incision is intact Home undelivered Calf Tenderness: No Patient Condition: Good CHANG REYES MD Nov 11, 2018 15:03
--- NOTE | 2018-11-11 15:05 | PREOPHP ---
DATE OF ADMISSION: 11/10/2018 ADDENDUM ADMITTING DIAGNOSES: 1. 37 weeks . 2. Three previous section. 3. Abdominal pain. 4. Epigastric pain. 5. Rule out -induced hypertension. PAST MEDICAL HISTORY: Remarkable for 3 C-sections. FAMILY HISTORY: Noncontributory. ALLERGIES: NO KNOWN ALLERGIES. SOCIAL HISTORY: She does not drink or smoke. PAST SURGICAL HISTORY: She had no other surgeries, no other medical antecedents. The patient has not been compliant with her care and so far she has not done the blood sugar testing which will be done during the admission. The patient also is being checked for gallbladder stones to rule out gallbladder stones. The ultrasound of the abdomen will be observed and otherwise, the physical examination as I said with a BMI of 41.7 and normal vital signs otherwise. Dictated By: CHANG HUTTON/STEVE Conf#: [id number] DID#: [id number]
== END 2018-11-11 15:00 | disposition home or self-care (01) | DRG 833 ==
LOC: OBT 23:14 → L-D 23:15 → OBT 11-10 08:40 → L-D 11-10 08:40
PROVIDERS: ADMIT Obstetrics & Gynecology; ATTEND Obstetrics & Gynecology
DX: O26.893 Other specified pregnancy related conditions, third trimester (principal); R10.13 Epigastric pain; R51 Headache; O34.219 Maternal care for unspecified type scar from previous cesarean delivery; O60.03 Preterm labor without delivery, third trimester; Z3A.37 37 weeks gestation of pregnancy
CPT/HCPCS: 76705; 76818; 80053; 81001; 81003; 82575; 82951; 84156; 84560; 85025; 85384; 85610; 85730; 87086; G0463; J0595; J2916; J7120

== ENCOUNTER 2018-11-18 05:23 | Inpatient (IN) | payer OTHER ==
[~2018-11-18] VITALS: Ht 152.4 cm; Wt 96.5 kg
[~2018-11-18 05:23] MED LIST changes: -MICO44CM VAGINAL
[2018-11-18 05:28] VITALS: Ht 152.4 cm; Wt 96.5 kg
[2018-11-18] MEDS ORDERED: LACTATED RINGER'S 1,000 ML IV SCH ×2 (05:29→07:20)
[2018-11-18] MEDS ORDERED: CARBOPROST 250 MCG INJ IM PRN ×2 (05:30→07:30)
[2018-11-18] MEDS ORDERED: OXYTOCIN 30 UNITS/LR 500 ML IV PRN ×2 (05:30→07:30)
[2018-11-18] MEDS ORDERED: METHYLERGONOVINE 0.2 MG INJ IM PRN ×2 (05:30→07:30)
[2018-11-18] MEDS ORDERED: CEFAZOLIN 2 GM/50 ML (PMX) 50 ML IVPB SCH (05:30)
[2018-11-18] MEDS ORDERED: OXYTOCIN 30 UNITS/LR 500 ML IV SCH ×2 (05:30→07:20)
[2018-11-18] MEDS ORDERED: MISOPROSTOL 200 MCG TAB PR PRN ×2 (05:30→07:30)
[2018-11-18 06:10] VITALS: BP 110/66; PULSE 84; RESP 18
--- NOTE | 2018-11-18 06:21 | PREOPHP ---
DATE OF ADMISSION: 11/18/2018 HISTORY OF PRESENT ILLNESS: This is a 28-year-old female, 6, para 3, abortions 1, with 3 marshall ing children and 3 sections prior to this one that is going to be a repeat section. The patient's EDC is 12/01/2018 and she is being observed for preeclampsia. She has been having pr oteinuria. She has been having headaches that have been extremely persistent in spite of Tylenol. T julisa would come back with a feeling of weakness and slightly shaky. The patient was admitted before l week due to the persistent headache for 3 days and she was sent home with the instructions of PIH and what were the warning signs for severe PIH. The patient had a history of having preeclampsia in the other pregnancies. At this time, she is undergoing a repeat with a tubal ligation at 38 weeks. The patient had a 24-hour urine collection that was indicative of large proteinuria. With the symptoms of headaches, sometimes dizziness, feeling weak and with leg edema and hyperreflexia, w ith the blood pressures were not in the high side, with impending mild preeclampsia, with impending s evere preeclampsia, with severe headaches, she is advised for a repeat slightly earlier fe n expected. Also, she is for a tubal ligation. PAST MEDICAL HISTORY: Three C-sections and preeclampsia in the other pregnancies. SOCIAL HISTORY: No history of drinking, smoking, drug addiction. No history of drugs. This patient came to see me since 26 weeks' with referral from other clinic and good dates. The patient is only 5 feet tall and her weight before was 193 pounds. At this time, she is 210 pounds. The patient has been gaining weight in the last 2 weeks from gestational edema and mi ld PIH. The patient weighs right now 210 pounds. Her blood pressure has been normal and her reflexe s were 2+ with gestational edema, for which she was sent in for PIH panel that revealed that she has mild PIH with proteinuria. The patient is being delivered at 38 weeks for repeat and tubal ligation due to her prior 3 sections. She was given advice of removing the whole tube or j ust getting a partially tubal ligation with the approach of partial salpingectomy leaving the possibl e chance for future tuboplasty, which was not feasible in her case due to her parity and C-sections. She had agreed to remove the tubes. She does not want to ever have other babies or have more C-sect ions, even if she changes partner. The patient's past history otherwise for C-sections and PIH. She is quite unreliable and she had not done the blood test at the time we were asking her for. They di d when she was admitted in the hospital and likely her diabetes has not been shown in this . The patient otherwise has been anemic and advised for extra iron in her diet and food and otherwise we are doing a at 38 weeks to prevent her from getting worse and develop severe preeclamps ia. FAMILY HISTORY: Diabetes on her aunt. ALLERGIES: SHE IS NOT ALLERGIC TO ANY MEDICATION. PHYSICAL EXAMINATION: VITAL SIGNS: She is 5 feet. She weighs 210. Her blood pressure is 110/80, pulse is 80, respiration s 16. 2+ edema. HEAD AND NECK: Normal. CHEST: Clear. HEART: Normal sinus rhythm. LUNGS: Clear. BREASTS: Soft, nontender, no masses. ABDOMEN: Soft. Uterus at term. Very large presentation which is cephalic. Normal heart tone s. PELVIC: With a closed long and posterior cervix with no presentation palpable. EXTREMITIES: 2+ reflexes, 2 to 3+ edema and normal pulses. DIAGNOSES: 1. A 38 weeks' with mild -induced hypertension. 2. Severe headaches, persistent. 3. Multiparity. PLAN: She is undergoing a repeat section and tubal ligation with full understanding. The patient hopkins s been advised of the possible risks and possible complications of the procedure with her alternative s and options. Written information was provided. She had no more questions and agreed to go ahead w ith the procedure with full understanding and no more questions. Dictated By: CHANG HUTTON/NTS Conf#: [id number] DID#: [id number]
[2018-11-18] MEDS ORDERED: FENTAnyl 50 MCG/ML VIAL ONE ×3 (07:19→08:31)
[2018-11-18] MEDS ORDERED: morphine SULFATE/PF (10 MG/10 ML) INJ ONE (07:19)
[2018-11-18] MEDS ORDERED: METOCLOPRAMIDE 10 MG INJ ONE (07:20)
[2018-11-18] MEDS ORDERED: OXYTOCIN 10 UNIT INJ ONE (07:20)
--- NOTE | 2018-11-18 07:22 | PREAC ---
Date/Time of Note Date/Time of Note DATE: 11/18/18 TIME: 07:20 Anesthesia Eval and Record Evaluation Time Pre-Procedure Interview DATE: 11/18/18 TIME: 07:20 Age 28 Sex female NPO: 8 hrs Preoperative diagnosis PREVIOUS C SECTION, MULTIPARITY Planned procedure REPEAT C SECTION, BTL Past Medical History Past Medical History: Includes GI: Morbid obesity : : (6), Para: (3), Gestational age: (38 1/7) Surgery & Anesthesia Issues No known issue Meds Anticoagulation: No Beta Maisha within 24 hr: No Reason Beta Maisha not given: Pt. not on B-Maisha Reported Medications Calcium Citrate* (Citracal*) 950 Mg Tab, 950 MG PO DAILY, TAB 07/19/18 Ferrous Sulfate* (Ferrous Sulfate*) 325 Mg Tabec, 325 MG PO DAILY, TAB 07/19/18 Multivit/Min/Fol Ac/Iron/Pren* ( S*) 1 Tab Tab, 1 TAB PO DAILY, TAB 12/20/16 Discontinued Reported Medications Miconazole Nitrate (MONISTAT 7) 44 Gm Cmb.pf.crm, 1 APPFUL VAGINAL QPM, #1 TUB 07/19/18 Current Medications Lactated Ringer's 1,000 ml @ 125 mls/hr Q8H IV Last administered on 11/18/18at 05:45; Admin Dose 125 MLS/HR; Start 11/18/18 at 05:29 Cefazolin Sodium/ Dextrose 50 ml @ 100 mls/hr ONCE IVPB ; Start 11/18/18 at 05:30 Oxytocin/Lactated Ringer's 500 ml @ 125 mls/hr POST IV ; Start 11/18/18 at 05:30 Oxytocin/Lactated Ringer's 500 ml @ 0 mls/hr ONCE PRN IV .VAGINAL BLEEDING; Start 11/18/18 at 05:30 Methylergonovine Maleate (Methergine) 0.2 mg ONCE PRN IM .VAGINAL BLEEDING; Start 11/18/18 at 05:30 Carboprost Tromethamine (Hemabate) 250 mcg ONCE PRN IM .VAGINAL BLEEDING; Start 11/18/18 at 05:30 Misoprostol (Cytotec) 1,000 mcg ONCE PRN UT .VAGINAL BLEEDING; Start 11/18/18 at 05:30 Meds reviewed: Yes Allergies Coded Allergies: No Known Drug Allergies (Verified Allergy, Unknown, 11/18/18) Allergies Reviewed: Yes Labs/Studies Labs Reviewed: Reviewed by anesthesiologist Result Diagram: 11/18/18 0540 Laboratory Tests 11/18/18 05:40 test: N/A Pre-procedure Exam Last vitals Vital Signs Date Temp Pulse Resp B/P (MAP) Pulse Ox O2 O2 Flow FiO2 Time Delivery Rate 11/18/18 97.8 84 18 110/66 Room Air 06:10 (81) Airway: Adequate mouth opening, Adequate thyromental dist Mallampati: Mallampati II Teeth: Normal Lung: Normal Heart: Normal ASA Physical Status ASA physical status: 3 Emergency: None Planned Anesthetic Neuraxial: Spinal Planned Pain Management Parenteral pain med Pre-operative Attestations Prior to commencing anesthesia and surgery, the patient was re-evaluated, there was verification of: *The patient's identity *The results of appropriate recent lab work and preoperative vital signs *The above evaluation not changing prior to induction *Anesthetic plan, risk benefits, alternative and complications discussed with patient/family; questions answered; patient/family understands, accepts and wishes to proceed. Michael Darnell M.D. Nov 18, 2018 07:22
[2018-11-18] MEDS ORDERED: NA PHOSPHATE/BIPHOS 133 ML ENEMA PR PRN (07:30)
[2018-11-18] MEDS ORDERED: LANOLIN HPA 1 PKT TOP PRN (07:30)
[2018-11-18] MEDS ORDERED: METHYLERGONOVINE 0.2 MG TAB PO PRN (07:30)
[2018-11-18] MEDS ORDERED: KETOROLAC 30 MG INJ IV SCH (07:30)
--- NOTE | 2018-11-18 07:33 | SIPON ---
Date/Time of Note Date/Time of Note DATE: 11/18/18 TIME: 07:31 Operative Report Preoperative Diagnosis 38.1 weeks . Mild PIH. Persistent headaches and proteinuria. PIH previous Maternal obesity. Previous Multiparity Postoperative Diagnosis Same Operation/Procedure Performed Repeat low segment transverse section and bilateral salpingectomy Surgeon see signature line autopsy assistant Dr Hope Anesthesia: spinal Estimated blood loss: other Transfusion Required none Specimen Placenta Grafts/Implants none Complications none CHANG REYES MD Nov 18, 2018 07:33
[2018-11-18] MEDS ORDERED: morphine 2 MG INJ IV PRN ×2 (08:00)
[2018-11-18] MEDS ORDERED: ONDANSETRON 4 MG INJ IV PRN ×2 (08:00)
[2018-11-18] MEDS ORDERED: hydrALAzine 20 MG INJ IV PRN (08:00)
[2018-11-18] MEDS ORDERED: NALBUPHINE HCL (10 MG/1 ML) INJ IV PRN (08:00)
[2018-11-18] MEDS ORDERED: TRIMETHOBENZAMIDE 100 MG/ML VIAL IM PRN ×2 (08:00)
[2018-11-18] MEDS ORDERED: ALBUTEROL 0.083% (NEB) 2.5 MG/3 ML AMP HHN PRN (08:00)
[2018-11-18] MEDS ORDERED: LABETALOL HCL 20MG INJ IV PRN (08:00)
[2018-11-18] MEDS ORDERED: NALOXONE (0.4 MG/ML) INJ IV PRN (08:00)
[2018-11-18] MEDS ORDERED: IPRATROPIUM (NEB) 0.5 MG/2.5 ML AMP HHN PRN (08:00)
[2018-11-18] MEDS ORDERED: MEPERIDINE 25 MG INJ IV PRN (08:00)
[2018-11-18] MEDS ORDERED: EPHEDrine 25 MG/5 ML SYG IV PRN (08:00)
[2018-11-18] MEDS ORDERED: FENTAnyl 50 MCG/ML VIAL IV PRN ×3 (08:00)
[2018-11-18] MEDS ORDERED: DIPHENHYDRAMINE 50 MG INJ IV PRN ×2 (08:00)
[2018-11-18] MEDS ORDERED: KETOROLAC 30 MG INJ ONE (08:03)
[2018-11-18] MEDS: SENNA/DOCUSATE NA (8.6MG/50MG) TAB PO SCH ×2 (09:00→21:40)
--- NOTE | 2018-11-18 09:10 | PAC ---
Date/Time of Note Date/Time of Note DATE: 11/18/18 TIME: 09:10 Post-Anesthesia Notes Post-Anesthesia Note Last documented vital signs Vital Signs Date Temp Pulse Resp B/P (MAP) Pulse Ox O2 O2 Flow FiO2 Time Delivery Rate 11/18/18 97.8 84 18 110/66 Room Air 06:10 (81) Activity: WNL Respiratory function: WNL Cardiovascular function: WNL Mental status: Baseline Pain reasonably controlled: Yes Hydration appropriate: Yes Nausea/Vomiting absent: Yes Michael Darnell M.D. Nov 18, 2018 09:10
--- NOTE | 2018-11-18 10:40 | OPR ---
DATE OF OPERATION: 11/18/2018 PROCEDURE: Repeat low segment transverse section and bilateral salpingectomy, lysis of adhe sions. PREOPERATIVE DIAGNOSES: A 38.1 weeks' with mild PIH, persistent headaches and proteinuria. PIH previous history and maternal obesity, previous section and multiparity. POSTOPERATIVE DIAGNOSES: A 38.1 weeks' with mild PIH, persistent headaches and proteinuria . PIH previous history and maternal obesity, previous section and multiparity. SURGEON: Chang Rodriguez MD STONE DRILLER: Bobby Andrews MD ANESTHESIA: Spinal, Dr. Darnell. ESTIMATED BLOOD LOSS: 700 mL. COMPLICATIONS: None. PROCEDURE: The patient was given spinal anesthesia, placed in the supine position and the Klein cath eter was placed in the bladder. A transverse incision was made suprapubically over the pubic bone 2 cm up over through the previous old scars. The abdomen was opened in layers without difficulties. A bdominal cavity was reached. The uterus was attached to the anterior abdominal wall. We lysed adhes ions of the uterus first, and then there was adhesion of the bladder that were turned down and the bl adder finally was pushed down. Then the incision of the uterus was made with a knife and the incisio n was increased laterally on either side for about 3 inches. The baby's head was delivered followed by the body. The cord was clamped and cut. The baby was handed over to the grill attendant team. The cord blood was obtained. The placenta was removed. The uterus was cleaned out and there was no ope virginie of the cervix, so we used a ring forceps to open the cervix. The uterus was closed with a PDS l ooped suture all the way across and also interrupted sutures with 0 MH chromic stitches. Hemostasis was good. At this time, the fimbria and loss of the tube were clamped at the mesosalpinx and removed . This was done in both sides and hemostasis done with 2-0 Vicryl suture. The procedure was finishe d by checking for bleeding points. Surgicel and Interceed were applied to the incisional area, sinc e the patient was oozing from venous bleeding. The cavity was revised under water and found to be in good condition. The uterus was also stable in good condition and the peritoneum was closed after Lockhart rgicel and Interceed were placed on the area of the surgery. The peritoneum was closed with 2-0 Vicr yl. The fascia was closed with 0 PDS looped suture, 2-0 Vicryl for the subcutaneous tissue, 3-0 [place] cryl subcuticular to the skin, Dermabond and Steri-Strips. The patient tolerated the procedure well and left the OR awake and stable. Sponge counts, instrument counts, needle counts were correct. In travenous antibiotics were given for prophylaxis. Dictated By: CHANG HUTTON/STEVE Conf#: [id number] DID#: [id number]
[2018-11-18] MEDS: KETOROLAC 30 MG INJ IV PRN ×2 (10:45→22:23)
[2018-11-18 11:25] VITALS: BP 124/56; PULSE 78; RESP 18
[2018-11-18 12:25] VITALS: BP 109/64; PULSE 75; RESP 18
[2018-11-18 13:25] VITALS: BP 109/69; PULSE 74; RESP 18
[2018-11-18] MEDS: CEFAZOLIN 2 GM/50 ML (PMX) 50 ML IVPB SCH ×2 (14:24→21:39)
[2018-11-18 16:00] VITALS: BP 105/55; PULSE 89; RESP 18
[2018-11-18 20:00] VITALS: BP 114/64; PULSE 89; RESP 18
[2018-11-19] VITALS: BP 109/71; PULSE 90; RESP 19
[2018-11-19 04:00] VITALS: BP 103/58; PULSE 97; RESP 18
[2018-11-19] MEDS ORDERED: LACTATED RINGER'S 1,000 ML IV ONE (05:30)
[2018-11-19] MEDS: CEFAZOLIN 2 GM/50 ML (PMX) 50 ML IVPB SCH (05:43)
[2018-11-19] MEDS: IBUPROFEN 800 MG TAB PO SCH ×3 (06:00→21:39)
[2018-11-19] MEDS ORDERED: HYDROCODONE/APAP (5/325) TAB PO PRN (07:30)
[2018-11-19 08:05] VITALS: BP 118/70; PULSE 92; RESP 18
[2018-11-19] MEDS: HYDROCODONE/APAP (5/325) TAB PO PRN (08:05)
[2018-11-19] MEDS: FERROUS SULFATE (EC) 325 MG TAB PO SCH (09:22)
[2018-11-19] MEDS: SENNA/DOCUSATE NA (8.6MG/50MG) TAB PO SCH ×2 (09:22→21:39)
[2018-11-19] MEDS: PRENATAL VITAMIN PO SCH (09:22)
--- NOTE | 2018-11-19 09:48 | PN ---
Date/Time of Note Date/Time of Note DATE: 11/19/18 TIME: 09:46 Assessment/Plan Lines/Catheters IV Catheter Type (from Nrsg): Peripheral IV Subjective 24 Hr Interval Summary Day 1 post and tubal ligation. Laboratory testing not finished yet. No complaints of headaches Blood pressure controlled Encouraged ambulation Incision dry Tolerating liquids Constitutional: no complaints Feeding: advancing diet Pain Control: mild Detailed Summary Eyes: no complaints ENT: no complaints Respiratory: no complaints Cardiovascular: no complaints Gastrointestinal: no complaints Genitourinary: no complaints Musculoskeletal: no complaints Skin: no complaints Neurologic: no complaints Endocrine: no complaints Lymphatic: no complaints Psychological: no complaints, nl mood/affect Immunologic: no complaints Exam/Review of Systems Vital Signs Vitals Vital Signs Date Temp Pulse Resp B/P (MAP) Pulse Ox O2 O2 Flow FiO2 Time Delivery Rate 11/19/18 98.8 92 18 118/70 95 Room Air 08:05 (86) Intake and Output 11/18/18 11/18/18 11/19/18 1515:00 23:00 07:00 IntakeIntake Total 1200 ml 300 ml 1050 ml OutputOutput Total 190 ml 200 ml 1100 ml BalanceBalance 1010 ml 100 ml -50 ml Exam Constitutional: alert, oriented, well developed Psych: no complaints, nl mood/affect Head: normocephalic, atraumatic Eyes: nl conjunctiva, EOMI, nl lids, nl sclera ENMT: nl external ears & nose, nl lips & teeth, nl nasal mucosa & septum, muc lexy pink and moist Neck: supple, non-tender Respiratory: clear to auscultation, normal air movement Cardiovascular: regular rate and rhythm, nl pulses Gastrointestinal: soft, nl liver, spleen, non-tender Musculoskeletal: nl extremities to inspection, nl gait and stance Extremities: normal pulses Neurological: HEALTHCARE BUSINESS ANALYST II-XII intact, nl mental status, nl speech, nl strength Skin: nl turgor, rash or lesions Lymph: nl lymph nodes Results Result Diagram: 11/19/18 0808 CHANG REYES MD Nov 19, 2018 09:48
[2018-11-19 16:00] VITALS: BP 111/55; PULSE 95; RESP 18
[2018-11-19 19:35] VITALS: BP 108/55; PULSE 96; RESP 19
[2018-11-20 03:35] VITALS: BP 113/61; PULSE 96; RESP 18
[2018-11-20] MEDS: IBUPROFEN 800 MG TAB PO SCH ×2 (05:44→13:38)
[2018-11-20 07:45] VITALS: BP 118/66; PULSE 77; RESP 18
[2018-11-20] MEDS: PRENATAL VITAMIN PO SCH (08:30)
[2018-11-20] MEDS: HYDROCODONE/APAP (5/325) TAB PO PRN (08:31)
[2018-11-20] MEDS: FERROUS SULFATE (EC) 325 MG TAB PO SCH (08:31)
[2018-11-20] MEDS: SENNA/DOCUSATE NA (8.6MG/50MG) TAB PO SCH (08:31)
--- NOTE | 2018-11-20 11:05 | PD.PPDC ---
GAS REGULATOR REPAIRER Discharge Instruction Condition [id number] Patient Condition: Mnins8z Good Diet Vgfxr5Hc Diet: Fcnme4m Resume Regular Diet Activity/Restrictions [id number] Activity: Mnoje2t Normal Activity May Shower [id number] Restrictions: Cjlle5f No Exercising No Lifting No Driving No Sexual Activity Nothing in the Vagina No Micco No Tampons, douche Wound/Drain Care Instructions [id number] Wound/Drain Care Waegn0q Remove Steri Strips in 1 week Instructions: Wash with soap and water Keep clean and dry Follow-up Follow-up with Physician: 2, Week/Weeks Return to clinic for Swezw3Ae TRAILER PARK MANAGER Instructions: Gwykq9c Fever greater than 101 Chills Worsening abdominal pain Excessive Vaginal Bleeding More than 2 pads per hour Unable to tolerate diet [id number] OB Instructions: Ymeuh6l Breast Tenderness Depression Blurried Vision Headache [id number] Surgical Instructions: Jwrtl1h Incisional Drainage Incisional Redness CHANG REYES MD Nov 20, 2018 11:05
--- NOTE | 2018-11-20 11:14 | DS ---
Date/Time of Note Date/Time of Note DATE: 11/20/18 TIME: 11:09 Obstetrical Discharge Record Final Diagnosis Final Diagnosis: Term delivered Vaginal Delivery Obstetrical Delivery: Bilateral Tubal Ligation Section Section: Repeat Complications Augmentation: No Induction: No Condition on Discharge Physical Assessment Voiding: Yes Bowel Movement: Yes Breast: Soft, non-tender, Filling Fundus: Firm Abdomen and Incision: This is a 28 years old female on her fourth and tubal ligation admitted at 38 weeks with hypertension persistent headaches multiparity and mild PIH. She was scheduled for a and tubal ligation and this was done without complications she did very well. She was anemic but she is chronically anemic so she does not feel any chest pain or any shortness of breath and do not feel any problems of breathing or chest pain . the patient. Is asking to go home in her second day. Because she is ambulatory she has no pain incision is healing good , she is breast-feeding and she is afebrile. Her laboratory testing does show anemia but she will be taking her vitamins and iron at home. She is sent home with ibuprofen and Oley as needed.. At this time she is tolerating diet she is voiding well she had bowel movements and she is ambulatory and stable. She is given instructions of how to reach me in the emergency case she was given also instructions on what to do and not to do at home and see me in the office in 1 week Calf Tenderness: No Patient Condition: Good CHANG REYES MD Nov 20, 2018 11:14
[2018-11-20] MEDS ORDERED: DIPHTH/TET/ACEL PERTUSS (ADULT) 0.5 ML VIAL IM* ONE (11:25)
[2018-11-20] MEDS ORDERED: MEASLES,MUMPS,RUBELLA VACCINE INJ SC* ONE (11:25)
--- NOTE | 2018-11-21 17:00 | DELSUM ---
Delivery Summary A-C Datetime Report Generated by CPN: 11/21/2018 16:59 DELIVERY PERSONNEL Spud Driller: Lexis Serrano MATERNAL INFORMATION Delivery Anesthesia: Spinal Medications in Delivery: SEE ANESTHESIA NOTE Delivery QBL (ml): 700 Placenta Cultured: No Maternal Complications: Other Other Maternal Complications: HIGH BP, PROTEINURIA, PREECLAMCIA WITH OTHE LABOR SUMMARY EDC: 12/01/2018 00:00 No. Babies in Womb: 1 Attempted: No Labor Anesthesia: None LABOR INFORMATION Reason for Induction: Not Applicable Group B Beta Strep: Negative Antibiotics # of Doses: 1 Antibiotics Time of Last Dose: 11/18/2018 07:23 Steroids Given: None Reason Steroids Not Administered: Not Applicable MEMBRANES Membranes Rupture Method: Artificial Rupture of Membranes: 11/18/2018 07:55 Length of Rupture (hr): 0.00 Amniotic Fluid Color: Clear Amniotic Fluid Amount: Moderate Amniotic Fluid Odor: Normal STAGES OF LABOR Stage 3 hr: 0 Stage 3 min: 1 CSECTION DELIVERY Primary Indication: Repeat Elective CSection Urgency: Non Elective CSection Incidence: Repeat Labor: No Labor Elective: Nonelective CSection Incision: Lower Uterine Transverse Sterilization Procedure: [place] BABY A INFORMATION Delivery Date/Time: 11/18/2018 07:55 Method of Delivery: Born in Route : No : N/A Forceps: N/A Vacuum Extraction: Successful Shoulder Dystocia : N/A ASSISTED DELIVERY BABY A Catheter Prior to Procedure: Yes Vacuum Number of Pulls: 0 Vacuum Number of PopOffs: 0 Vacuum Federal Mediator: [place] Total Time Vacuum Applied: 2 SECS Vacuum/Forceps Comment: CONTROLLED BY MD SHOULDER DYSTOCIA BABY A Infant Delivery Date/Time: 11/18/2018 07:55 PRESENTATION/POSITION BABY A Presentation: Cephalic Cephalic Presentation: Vertex Vertex Position: N/A Breech Presentation: N/A PLACENTA INFORMATION BABY A Placenta Delivery Time : 11/18/2018 07:56 Placenta Method of Delivery: Manual Removal Placenta Status: Delivered SCORES BABY A Heart Rate 1 min: >100 bpm Resp Effort 1 min: Good Cry Reflex Irritability 1 min: Cough/Sneeze/Pulls Away Muscle Tone 1 min: Active Motion Color 1 min: Body [place], Extremit Blue Resuscitation Effort 1 min: Tactile Stimulation SCORE 1 MIN: 9 Heart Rate 5 min: >100 bpm Resp Effort 5 min: Good Cry Reflex Irritability 5 min: Cough/Sneeze/Pulls Away Muscle Tone 5 min: Active Motion Color 5 min: Body [place], Extremit Blue Resuscitation Effort 5 min: Tactile Stimulation SCORE 5 MIN: 9 INFORMATION BABY A Gestational Age at Delivery: 38.1 Gestational Status: Early Term- 37- 38.6 Weeks Outcome : Liveborn, with signs of life Infant Condition : Stable Infant Sex: Male IDENTIFICATION/MEDS BABY A ID Band Number: [id number] ID Band Location: Right Leg; Left Arm Sensor Applied: Yes Sensor Number: [id number] Sensor Location : Cord Clamp Vitamin K Given : Not Given Erythromycin Given: Not Given WEIGHT/LENGTH BABY A Birthweight (gm): 3280 Infant Weight (lb): 7 Weight (oz): 4 Length (in): 19.00 Length (cm): 48.26 CORD INFORMATION BABY A No. Cord Vessels: 3 Nuchal Cord : N/A Cord Blood Taken: Yes Suction: Mouth; Nose ASSESSMENT BABY A Infant Complications: None Physical Findings at Delivery: Within Normal Limits Respirations: Appears Normal Service Technician Copier/ALS Called : Yes Care By: RT Transferred To: Remains with Mother
== END 2018-11-20 16:59 | disposition home or self-care (01) | DRG 785 ==
LOC: L-D 05:23 → PP1 11:29
PROVIDERS: ADMIT Obstetrics & Gynecology; ATTEND Obstetrics & Gynecology
PROC: 0UB70ZZ Excision of Bilateral Fallopian Tubes, Open Approach (ICD-10-PCS; 2018-11-18)
PROC: 10D00Z1 Extraction of Products of Conception, Low, Open Approach (ICD-10-PCS; principal; 2018-11-18 07:30)
PROC: 3E0234Z Introduction of Serum, Toxoid and Vaccine into Muscle, Percutaneous Approach (ICD-10-PCS; 2018-11-20)
DX: O34.211 Maternal care for low transverse scar from previous cesarean delivery (principal); O99.214 Obesity complicating childbirth; E66.01 Morbid (severe) obesity due to excess calories; O99.02 Anemia complicating childbirth; O14.04 Mild to moderate pre-eclampsia, complicating childbirth; Z3A.38 38 weeks gestation of pregnancy; Z37.0 Single live birth; Z30.2 Encounter for sterilization; Z23 Encounter for immunization
CPT/HCPCS: 81001; 85025; 85610; 85730; 86592; 86850; 86900; 86901; 87340; 88302; 90715; 99464; J0690; J1885; J2274; J2590; J2765; J3010; J7120